=== PATIENT | female | born 1985 | race Caucasian/White ===

== ENCOUNTER 2019-09-27 08:25 | Outpatient (CLI) | payer OTHER ==
[2019-09-27] MEDS ORDERED: MULT-308 PO (08:49)
[2019-09-27] MEDS ORDERED: CETI10TA26 PO (08:49)
[2019-09-27] MEDS ORDERED: ALBU18HF IH (08:49)
== END 2019-09-27 23:59 | disposition home or self-care (01) ==
LOC: STAR 08:25
PROVIDERS: ATTEND Podiatrist Foot & Ankle Surgery
DX: Z02.9 Encounter for administrative examinations, unspecified (principal)
CPT/HCPCS: 36415; 87635

== ENCOUNTER 2019-10-01 11:54 | Day surgery (SDC) | payer OTHER ==
[~2019-10-01] VITALS: Ht 162.6 cm; Wt 76.6 kg
[~2019-10-01 11:54] MED LIST: ALBU18HF IH; BUPIVACAINE/PF-EPI 0.5% 1:200K ONE; CETI10TA26 PO; KETOROLAC 30 MG/1 ML ONE; MULT-308 PO
[2019-10-01] MEDS ORDERED: LACTATED RINGERS 1,000 ML IV SCH (12:12)
[2019-10-01] MEDS ORDERED: CHLORHEXIDINE 15 ML UDC MM STA (12:12)
[2019-10-01 12:15] VITALS: BP 145/88
[2019-10-01 12:53] LABS: HCG UR SG 1.019 (1.003-1.030)
[2019-10-01] MEDS ORDERED: FENTANYL PF 100 MCG/2ML ONE (13:50)
[2019-10-01] MEDS ORDERED: MIDAZOLAM 1 MG/ML, 2ML ONE (13:51)
[2019-10-01] MEDS ORDERED: BUPIVACAINE/PF-EPI 0.5% 1:200K ONE (14:21)
[2019-10-01] MEDS ORDERED: PROPOFOL 10 MG/ML, 20ML ONE (15:47)
[2019-10-01] MEDS ORDERED: DEXAMETHASONE 4 MG/ML, 1ML ONE (15:47)
[2019-10-01] MEDS ORDERED: LIDOCAINE-MPF 2% ,5ML ONE (15:47)
[2019-10-01] MEDS ORDERED: ONDANSETRON 2MG/ML, 2ML ONE (15:47)
[2019-10-01] MEDS ORDERED: CEFAZOLIN 1,000 MG ONE (15:47)
[2019-10-01] MEDS ORDERED: MEPERIDINE/PF 25MG/0.5ML IVPush PRN (16:00)
[2019-10-01] MEDS ORDERED: hydrALAzine 20 MG/ML, 1ML IV PRN (16:00)
[2019-10-01] MEDS ORDERED: LORazepam 2 MG/ML, 1ML IVPush PRN (16:00)
[2019-10-01] MEDS ORDERED: ACETAMINOPHEN 325 MG TABLET PO PRN (16:00)
[2019-10-01] MEDS ORDERED: FENTANYL PF 100 MCG/2ML IV PRN (16:00)
[2019-10-01] MEDS ORDERED: LABETALOL 5MG/ML, 20ML IV PRN (16:00)
[2019-10-01] MEDS ORDERED: OXYcodone 5 MG/5 ML ORAL.SOL UDC PO PRN (16:00)
[2019-10-01] MEDS ORDERED: ALBUTEROL SULFATE 2.5 MG/3 ML NPPB PRN (16:00)
[2019-10-01] MEDS ORDERED: PROMETHAZINE 25 MG/ML, 1ML IVPush PRN (16:00)
[2019-10-01] MEDS ORDERED: HYDROmorphone 1 MG/ML, 1ML INJ IVPush PRN (16:00)
== END 2019-10-01 16:45 | disposition home or self-care (01) ==
LOC: OUT 11:54
PROVIDERS: ATTEND Podiatrist Foot & Ankle Surgery
DX: S96.211A Strain of intrinsic muscle and tendon at ankle and foot level, right foot, initial encounter (principal); S92.901A Unspecified fracture of right foot, initial encounter for closed fracture; M19.071 Primary osteoarthritis, right ankle and foot; M85.871 Other specified disorders of bone density and structure, right ankle and foot; J45.909 Unspecified asthma, uncomplicated; Z79.899 Other long term (current) drug therapy; X58.XXXA Exposure to other specified factors, initial encounter; Y93.89 Activity, other specified; Y92.89 Other specified places as the place of occurrence of the external cause; Y99.8 Other external cause status
CPT/HCPCS: 28315; 81025; 87635; J0690; J1100; J1885; J2250; J2405; J2704; J3010; J7120